=== PATIENT | female | born 1960 | race Hispanic/Latino ===

== ENCOUNTER 2018-04-23 04:47 | Emergency (ER) | payer OTHER ==
[~2018-04-23] VITALS: Ht 157.5 cm; Wt 80.4 kg
--- OUTSIDE RECORDS SUMMARY | 2018-04-23 04:50 | XMS REPORT ---
Author Author [facility] Address Unknown Phone Unavailable Care Team Providers Care [address] [facility]key Name Role Phone ADRY SOUZA Unavailable Unavailable Problems This patient has no known problems. Allergies, Adverse Reactions, Alerts This patient has no known allergies or adverse reactions. Medications This patient has no known medications. Results Test Description Test Time Test Comments Text Results Atomic Results Result Comments BASIC METABOLIC PANEL 2017-12-21 06:16:00 SODIUM (BEAKER) (test xeqs=828) 138 meq/L 135-148 POTASSIUM (BEAKER) (test ajom=190) 3.5 meq/L 3.6-5.5 CHLORIDE (BEAKER) (test vrip=118) 106 meq/L 98-106 CO2 (BEAKER) (test luxu=941) 22 meq/L 20-29 BLOOD UREA NITROGEN (BEAKER) (test cqra=509) 9 mg/dL 10-26 CREATININE (BEAKER) (test zhtx=233) 0.61 mg/dL 0.50-1.20 GLUCOSE RANDOM (BEAKER) (test zpuh=241) 121 mg/dL 70-110 CALCIUM (BEAKER) (test xmif=225) 8.7 mg/dL 8.5-10.5 EGFR (BEAKER) (test wowz=5277) mL/min/1.73 sq m INSUFFICIENT CLINICAL DATA TO CALCULATE ESTIMATED GFR. CBC (HEMOGRAM ONLY)2017-12-21 06:01:00* Test Item Value Reference Range Comments WHITE BLOOD CELL COUNT (BEAKER) (test ddms=205) 6.8 K/ L 4.0-10.0 RED BLOOD CELL COUNT (BEAKER) (test qzsq=359) 2.81 M/ L 4.00-5.00 HEMOGLOBIN (BEAKER) (test qmhc=430) 8.1 GM/DL 12.0-15.5 HEMATOCRIT (BEAKER) (test iixw=635) 25.0 % 36.0-46.0 MEAN CORPUSCULAR VOLUME (BEAKER) (test dwnq=461) 89.0 fL 82.0-99.0 MEAN CORPUSCULAR HEMOGLOBIN (BEAKER) (test heee=585) 28.8 pg 27.0-33.0 MEAN CORPUSCULAR HEMOGLOBIN CONC (BEAKER) (test fluk=714) 32.4 GM/DL 32.0-36.0 RED CELL DISTRIBUTION WIDTH (BEAKER) (test gkyx=172) 12.5 % 12.0-15.0 PLATELET COUNT (BEAKER) (test cugt=330) 202 K/CU MM 150-430 MEAN PLATELET VOLUME (BEAKER) (test twgy=956) 10.0 fL 6.0-11.5 NUCLEATED RED BLOOD CELLS (BEAKER) (test hvgm=367) 0 /100 WBC 0-0 BASIC METABOLIC [id number] 06:07:00* Test Item Value Reference Range Comments SODIUM (BEAKER) (test vuos=175) 137 meq/L 135-148 POTASSIUM (BEAKER) (test yxvj=432) 3.6 meq/L 3.6-5.5 CHLORIDE (BEAKER) (test qlze=710) 104 meq/L 98-106 CO2 (BEAKER) (test kxru=115) 27 meq/L 20-29 BLOOD UREA NITROGEN (BEAKER) (test bccw=320) 12 mg/dL 10-26 CREATININE (BEAKER) (test shag=002) 0.65 mg/dL 0.50-1.20 GLUCOSE RANDOM (BEAKER) (test gqmb=820) 117 mg/dL 70-110 CALCIUM (BEAKER) (test mmrr=703) 8.8 mg/dL 8.5-10.5 EGFR (BEAKER) (test dilo=0238) mL/min/1.73 sq m INSUFFICIENT CLINICAL DATA TO CALCULATE ESTIMATED GFR. CBC (HEMOGRAM ONLY)2017-12-20 05:33:00* Test Item Value Reference Range Comments WHITE BLOOD CELL COUNT (BEAKER) (test bfco=592) 8.2 K/ L 4.0-10.0 RED BLOOD CELL COUNT (BEAKER) (test tjaj=689) 3.28 M/ L 4.00-5.00 HEMOGLOBIN (BEAKER) (test ogav=039) 9.6 GM/DL 12.0-15.5 HEMATOCRIT (BEAKER) (test jdwr=647) 29.6 % 36.0-46.0 MEAN CORPUSCULAR VOLUME (BEAKER) (test gnep=973) 90.2 fL 82.0-99.0 MEAN CORPUSCULAR HEMOGLOBIN (BEAKER) (test olqv=390) 29.3 pg 27.0-33.0 MEAN CORPUSCULAR HEMOGLOBIN CONC (BEAKER) (test vods=140) 32.4 GM/DL 32.0-36.0 RED CELL DISTRIBUTION WIDTH (BEAKER) (test kppw=511) 12.6 % 12.0-15.0 PLATELET COUNT (BEAKER) (test wpww=038) 235 K/CU MM 150-430 MEAN PLATELET VOLUME (BEAKER) (test nyhv=023) 9.5 fL 6.0-11.5 NUCLEATED RED BLOOD CELLS (BEAKER) (test qoey=031) 0 /100 WBC 0-0 BASIC METABOLIC [id number] 11:25:00* Test Item Value Reference Range Comments SODIUM (BEAKER) (test iwlt=077) 141 meq/L 135-148 POTASSIUM (BEAKER) (test kpdc=642) 4.0 meq/L 3.6-5.5 CHLORIDE (BEAKER) (test igpc=580) 107 meq/L 98-106 CO2 (BEAKER) (test koxh=653) 28 meq/L 20-29 BLOOD UREA NITROGEN (BEAKER) (test apcz=487) 15 mg/dL 10-26 CREATININE (BEAKER) (test rkis=606) 0.66 mg/dL 0.50-1.20 GLUCOSE RANDOM (BEAKER) (test tntp=558) 93 mg/dL 70-110 CALCIUM (BEAKER) (test yryo=098) 9.4 mg/dL 8.5-10.5 EGFR (BEAKER) (test vtmv=1799) mL/min/1.73 sq m INSUFFICIENT CLINICAL DATA TO CALCULATE ESTIMATED GFR. CBC W/PLT COUNT & AUTO [id number] 11:02:00* Test Item Value Reference Range Comments WHITE BLOOD CELL COUNT (BEAKER) (test bxpr=407) 4.9 K/ L 4.0-10.0 RED BLOOD CELL COUNT (BEAKER) (test uofd=641) 4.23 M/ L 4.00-5.00 HEMOGLOBIN (BEAKER) (test nwlf=439) 12.6 GM/DL 12.0-15.5 HEMATOCRIT (BEAKER) (test ramz=576) 38.0 % 36.0-46.0 MEAN CORPUSCULAR VOLUME (BEAKER) (test agqi=741) 89.8 fL 82.0-99.0 MEAN CORPUSCULAR HEMOGLOBIN (BEAKER) (test myny=063) 29.8 pg 27.0-33.0 MEAN CORPUSCULAR HEMOGLOBIN CONC (BEAKER) (test nate=829) 33.2 GM/DL 32.0-36.0 RED CELL DISTRIBUTION WIDTH (BEAKER) (test gjac=705) 12.8 % 12.0-15.0 PLATELET COUNT (BEAKER) (test cbyl=343) 282 K/CU MM 150-430 MEAN PLATELET VOLUME (BEAKER) (test uyqo=080) 9.5 fL 6.0-11.5 NUCLEATED RED BLOOD CELLS (BEAKER) (test wcra=509) 0 /100 WBC 0-0 NEUTROPHILS RELATIVE PERCENT (BEAKER) (test yync=730) 69 % LYMPHOCYTES RELATIVE PERCENT (BEAKER) (test agjc=191) 16 % MONOCYTES RELATIVE PERCENT (BEAKER) (test hlcq=314) 8 % EOSINOPHILS RELATIVE PERCENT (BEAKER) (test xxpl=882) 5 % BASOPHILS RELATIVE PERCENT (BEAKER) (test yudf=162) 1 % NEUTROPHILS ABSOLUTE COUNT (BEAKER) (test svnq=822) 3.36 K/ L 1.80-8.00 LYMPHOCYTES ABSOLUTE COUNT (BEAKER) (test wxir=644) 0.77 K/ L 1.48-4.50 MONOCYTES ABSOLUTE COUNT (BEAKER) (test qepi=083) 0.41 K/ L 0.00-1.30 EOSINOPHILS ABSOLUTE COUNT (BEAKER) (test mayt=668) 0.26 K/ L 0.00-0.50 BASOPHILS ABSOLUTE COUNT (BEAKER) (test bqop=389) 0.04 K/ L 0.00-0.20 IMMATURE GRANULOCYTES-RELATIVE PERCENT (BEAKER) (test jdvu=8633) 0 % 0-0 RAD, JOINT SURVEY, 1V 2 OR MORE [id number] 17:44:00Reason for Exam:-> M17.11FINAL REPORT Right lower extremity radiographs HISTORY: M17.11 COMPARISON: None FINDINGS: Standing views of the right lower extremity were obtained of the femur, knee, and tibia and fibula. There is no radiographic evidence of acute fracture or dislocation. There is marked medial compartment joint space narrowing of the right knee with and subchondral sclerosis. Mild femoral acetabular joint space narrowing. Signed: Ramiro Albert Verified Date/Time: 11/16/2017 17:44:01 Reading Location: [facility] Radiology Reading Room , EXTREMITY, LOWER, JOINT, WITHOUT CONTRAST, RIGHT 2017-11-16 13:56:00Reason for Exam:->M17.11FINAL REPORT MRI of the right knee History: M1.11 Comparison: None Technique: Multiplanar multisequence MRI of the right knee was performed without contrast. Findings: Extensor mechanism: The patellar and quadriceps tendons are intact. No retinacular abnormalities. Ligaments: The anterior and posterior cruciate ligaments are intact. The medial and lateral collateral ligament complexes are intact. Menisci: There is markedly truncated appearance of the body and posterior horn of the medial meniscus extending to the posterior root attachment with peripheral meniscus extrusion by 7 mm, consistent with a complex radial tear and/or partial meniscectomy change. The lateral meniscus appears intact. Bones/Cartilage: There is advanced tricompartmental osteoarthritis, most severe in the medial compartment with full-thickness cartilage loss, mild cortical flattening, subchondral sclerosis and edema, and marginal osteophytes. There is no fracture or traumatic malalignment. Marked subchondral marrow edema in the medial and lateral femoral condyles, medial and lateral tibial plateaus e xtending to the tibial eminence are suggestive of nonspecific reactive, degenera tive or stress-related change. There is no acute fracture. Fluid: Small knee angelo int effusion and small popliteal cyst. Muscles: No edema or atrophy. IMPRESSION : 1. Marked truncated appearance of the body and posterior horn of the medial me niscus consistent with a complex radial tear and/or partial meniscectomy change. 2. Advanced tricompartmental osteoarthritis, most severe in the medial compartme nt as above. Subchondral marrow edema in the distal femur and proximal tibia sug gestive of nonspecific reactive, degenerative or stress-related change.3. Small knee joint effusion and small popliteal cyst. Signed: Laya Ibanez [facility] [address] Date/Time: 11/16/2017 13:56:56 Reading Location: [facility] B1 [id number] Ortho Consult Reading Room 01: 56 PM
--- OUTSIDE RECORDS SUMMARY | 2018-04-23 04:50 | XMS REPORT | Clinical Summary ---
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 Active levothyroxine 50 mcg Cap Take 50 mcg 0 by mouth daily. Active fluticasone (FLONASE) 50 1 spray by 0 mcg/actuation nasal spray Nasal route as needed for Rhinitis. Active acetaminophen-codeine 0 (TYLENOL #3) 300-30 mg 8 per tablet Active HYDROcodone-acetaminophen 0 (NORCO 10-325) 10-325 mg 8 per tablet Active loratadine (CLARITIN) 10 0 mg tablet 8 Active predniSONE (DELTASONE) 50 0 MG tablet 8 07/19/2018 Active gabapentin (NEURONTIN) Take 1 270 capsule 0 100 MG capsule (100 9 capsuleIndications: mg total) by Cervical radiculopathy, mouth 3 Bilateral carpal tunnel (three) times syndrome daily for 90 days. 07/19/2018 Active IBU 800 mg Take 1 tablet 180 tablet 0 tabletIndications: (800 mg 9 Cervical radiculopathy, total) by Bilateral carpal tunnel mouth 2 (two) syndrome times daily for 90 days. 04/30/2018 Active traMADol (ULTRAM) 50 mg Take 1 tablet 30 tablet 1 tabletIndications: (50 mg total) 9 Cervical radiculopathy, by mouth Bilateral carpal tunnel every 6 (six) syndrome hours as needed for Pain for up to 10 days. Max Daily Amount: 200 mg 12/21/2017 Discontinued ibuprofen (ADVIL,MOTRIN) Take 800 mg 0 800 MG tablet by mouth every 8 (eight) hours as needed for Pain. 12/21/2017 Discontinued traMADol (ULTRAM) 50 mg Take 50 mg by 0 tablet mouth every 6 (six) hours as needed for Pain. 12/31/2017 docusate sodium (COLACE) Take 1 10 capsule 0 100 MG capsule capsule (100 8 mg total) by mouth 2 (two) times daily for 10 days. 12/21/2017 Discontinued enoxaparin (LOVENOX) 40 Inject 0.4 11 Syringe 0 mg/0.4 mL Syrg mLs (40 mg 8 total) subcutaneousl y daily. 01/01/2018 enoxaparin (LOVENOX) 40 Inject 0.4 11 Syringe 0 mg/0.4 mL Syrg mLs (40 mg 8 total) subcutaneousl y daily for 11 days. 02/15/2018 Discontinued traMADol (ULTRAM) 50 mg 0 tablet 8 04/20/2018 Discontinued IBU 800 mg tablet 0 8 03/17/2018 traMADol (ULTRAM) 50 mg Take 1 tablet 90 tablet 0 tablet (50 mg total) 8 by mouth every 8 (eight) hours as needed for Pain for up to 30 days. Max Daily Amount: 150 mg Active Problems Problem Noted Date Cervical radiculopathy 04/20/2018 Bilateral carpal tunnel syndrome 04/20/2018 Obesity (BMI 30-39.9) 04/20/2018 History of knee replacement, total, right 02/02/2018 Genu varum of right lower extremity 12/21/2017 Primary osteoarthritis of right knee 12/19/2017 Osteoarthritis of spine with radiculopathy, lumbar region 11/04/2017 Encounters Care Team Description Date Type Specialty Donny Mathur MD Cervical radiculopathy (Primary Dx); Bilateral carpal tunnel syndrome; Obesity (BMI 30-39.9) 04/20/2018 Office Visit Orthopedic Surgery Donny Mathur MD Medication 04/05/2018 Telephone Orthopedic Surgery Donny Mathur MD MED REFILL 04/04/2018 Telephone Orthopedic Donny Loyd MD Authorization 03/31/2018 Telephone Orthopedic Donny Loyd MD 03/01/2018 Telephone Orthopedic Donny Loyd MD Work Note 02/28/2018 Telephone Orthopedic Donny Loyd MD 02/27/2018 Telephone Orthopedic Donny Loyd MD Medication Refill 02/15/2018 Telephone Orthopedic Donny Loyd MD Primary osteoarthritis of right knee (Primary Dx); History of knee replacement, total, right 02/02/2018 Office Visit Orthopedic Donny Loyd MD Primary osteoarthritis of right knee (Primary Dx); Genu varum of right lower extremity 01/03/2018 Office Visit Orthopedic Surgery Donny Mathur MD MEDICATIONS 01/02/2018 Telephone Orthopedic Donny Loyd MD 12/30/2017 Orders Only Orthopedic Surgery Donny Mathur MD QUESTIONS 12/27/2017 Telephone Orthopedic Surgery Donny Mathur MD pharmacy 12/26/2017 Telephone Orthopedic Surgery Donny Mathur MD needs a letter 12/22/2017 Telephone Orthopedic Surgery Donny Mathur MD just had surgery 12/20/2017 Telephone Orthopedic Surgery Mary Ramirez, [facility] 12/19/2017 Anesthesia Event Donny Mathur MD ARTHROPLASTY,KNEE UNILATERAL 12/19/2017 Surgery Donny Mathur MD Primary localized osteoarthritis of right knee (Primary Dx); Genu varum of right lower extremity 12/19/2017 [facility] General Internal Medicine - Encounter 12/21/2017 Donny Mathur MD 12/19/2017 Surgery Prep 12/19/2017 Travel Donny Mathur MD evelyne from [facility] 12/19/2017 Telephone Orthopedic Donny Loyd MD 12/17/2017 Abstract Orthopedic Surgery Donny Mathur MD 12/16/2017 Abstract Orthopedic Surgery Donny Mathur MD 12/06/2017 Hospital Pre-Admission Testing Encounter Donny Mathur MD Osteoarthritis of right knee, unspecified osteoarthritis type 11/16/2017 Hospital Encounter Donny Mathur MD Osteoarthritis of right knee, unspecified osteoarthritis type 11/16/2017 Hospital Encounter Donny Mathur MD Osteoarthritis of right knee, unspecified osteoarthritis type (Primary Dx) 11/15/2017 Outside Orders Donny Mathur MD 11/08/2017 Outside Orders after 04/22/2017 Social History Date Tobacco Use Types Packs/Day Years Used Quit: 1996 Former Smoker 0.25 15 Smokeless Tobacco: Never Used Alcohol Use Drinks/Week oz/Week Comments No Sex Assigned at Date Recorded Not on file Industry Job Start Date Occupation Not on file Not on file Not on file Travel End Travel History Travel Start No recent travel history available. Last Filed Vital Signs Time Taken Vital Sign Reading 04/20/2018 1:39 PM MACHINE [facility] Blood Pressure 122/72 04/20/2018 1:39 PM MACHINE HAND Pulse 73 12/21/2017 4:05 PM CDT Temperature 37.1 C (98.7 F) 12/21/2017 4:05 PM CDT Respiratory Rate 18 12/21/2017 4:05 PM CDT Oxygen Saturation 99% - Inhaled Oxygen - Concentration 04/20/2018 1:39 PM MACHINE HAND Weight 83 kg (183 lb) 04/20/2018 1:39 PM MACHINE HAND Height 157.5 cm (5' 2") 04/20/2018 1:39 PM MACHINE HAND Body Mass Index 33.47 Plan of Treatment Care Team Description [place] [address] [facility] [address] [place] [address] [phone] 05/04/2018 [place] [address] [facility] [address] [place] [address] [phone] 05/18/2018 Office Visit Orthopedic Surgery Implants Device Identifier Shelf Expiration Date Model / Serial / Lot Implanted Type Area Manufactur er 04/21/2019 6197-9-001 / N/A / [id number] Cement Bone Smplx Tobra 40gm Cement/Kunal Right: Knee JAYDA:ST [id number] - Sn/A ler/Adhesi JUDY Implanted: Qty: 2 on 12/19/2017 by jayashree HAROEDDonny Serna MD 10/30/2026 [id number] / N/A / [id number] Post Stab Oxi Sz3 [id number] - Sn/A Joints Right: Knee TOMPKINS & Implanted: Qty: 1 on 12/19/2017 by NEPHEW:Donny Hill MD HO 10/08/2027 [id number] / N/A / [id number] Baseplt Tib Spotter Driver Genii 2 R [id number] - Joints Right: Knee TOMPKINS & Sn/A NEPHEW:ORT Implanted: Qty: 1 on 12/19/2017 by Donny Potter MD 10/18/2027 [id number] / N/A / [id number] Comp Fem Oval Genii 29mm [id number] - Joints Right: Knee TOMPKINS & Sn/A NEPHEW:ORT Implanted: Qty: 1 on 12/19/2017 by Donny Potter MD 06/08/2026 [id number] / N/A / [id number] Insrt Articular Sz 1-2 11mm - Sn/A Joints Right: Knee TOMPKINS & Implanted: Qty: 1 on 12/19/2017 by NEPHEW:Donny Hill MD Procedures Comments Procedure Name Priority Date/Time Associated Diagnosis XR HAND LEFT 3 VIEW Routine 04/20/2018 Bilateral carpal tunnel 3:53 PM MACHINE HAND syndrome XR SPINE CERVICAL 2 OR 3 Routine 04/20/2018 Cervical radiculopathy VIEWS 3:52 PM MACHINE HAND XR HAND RIGHT 3 VIEW Routine 04/20/2018 Bilateral carpal tunnel 3:52 PM MACHINE HAND syndrome XR KNEE RIGHT 3 VIEWS Routine 02/02/2018 Primary osteoarthritis of 11:31 AM MACHINE HAND right knee CBC (HEMOGRAM ONLY) Routine 12/21/2017 5:03 AM CDT BASIC METABOLIC PANEL (7) Routine 12/21/2017 5:03 AM CDT CBC (HEMOGRAM ONLY) Routine 12/20/2017 5:08 AM CDT BASIC METABOLIC PANEL (7) Routine 12/20/2017 5:08 AM CDT ANESTHESIA PERIPHERAL Routine 12/19/2017 BLOCK 3:38 PM CDT ARTHROPLASTY,KNEE 12/19/2017 Genu varum of right lower UNILATERAL 7:00 AM CDT extremity Primary localized osteoarthritis of right knee Special Needs ASST- conf w/Elmer-tp sSMITH & NEPHEW VISIONAIRE CUSTOM CUTTING BLOCKS/1 conf w/Shadi-tps TRANSFUSION SERVICE 12/07/2017 REPORT - SCAN 6:02 PM CDT CBC W/PLT COUNT & AUTO Routine 12/06/2017 DIFFERENTIAL 10:45 AM CDT TYPE AND SCREEN Routine 12/06/2017 10:45 AM CDT BASIC METABOLIC PANEL (7) Routine 12/06/2017 10:45 AM CDT CBC W/PLT COUNT & AUTO Routine 12/06/2017 DIFFERENTIAL 10:45 AM CDT XR JOINT SURVEY 1 VIEW 2 Routine 11/16/2017 OR MORE JOINTS 12:50 PM CDT MR LOWER EXT JOINT Routine 11/16/2017 Osteoarthritis of right WITHOUT IV CONTRAST RIGHT 12:06 PM CDT knee, unspecified osteoarthritis type after 04/22/2017 Results * XR hand 3 views left (04/20/2018 3:53 PM MACHINE HAND) Impressions Performed At Normal bone density. No fracture or dislocation seen. There is no significant arthrosis. The soft tissues are unremarkable. Narrative Performed At [facility], lateral, oblique of the left hand are reviewed * XR hand 3 views right (04/20/2018 3:52 PM MACHINE HAND) Impressions Performed At Normal bone density. No fracture or dislocation seen. There is no significant arthrosis. The soft tissues are unremarkable. Narrative Performed At [facility], lateral and oblique of the right hand are reviewed. * XR spine cervical 2 or 3 views (04/20/2018 3:52 PM MACHINE HAND) Impressions Performed At There is some mild loss of the normal cervical lordosis. At C5-C6 or some mild anterior spurring on the endplate of the vertebral body. The soft tissues are unremarkable. Narrative Performed At [facility] lateraland odontoid are reviewed. * XR knee 3 views right (02/02/2018 11:31 AM MACHINE HAND) Impressions Performed At There is a well aligned total knee arthroplasty that appropriately sized. There is no evidence of loosening. There is good tracking of the patella Narrative Performed At [facility] lateral and skyline of the right knee are reviewed. * CBC (Hemogram only) (12/21/2017 5:03 AM CDT) Only the most recent of 2 results within the time period is included. WBC 6.8 4.0 - 10.0 K/L [facility] RBC 2.81 (L) 4.00 - 5.00 M/L [facility] Hemoglobin 8.1 (L) 12.0 - 15.5 GM/DL [facility] Hematocrit 25.0 (L) 36.0 - 46.0 % [facility] MCV 89.0 82.0 - 99.0 fL [facility] MCH 28.8 27.0 - 33.0 pg [facility] MCHC 32.4 32.0 - 36.0 GM/DL [facility] RDW 12.5 12.0 - 15.0 % [facility] Platelets 202 150 - 430 K/CU MM [facility] MPV 10.0 6.0 - 11.5 fL [facility] nRBC 0 0 - 0 /100 WBC [facility] Specimen Blood - Arm, Right Performing Organization Address City/State/Zipcode Phone Number [facility] [address] [place], [place] [phone] * Basic metabolic panel (12/21/2017 5:03 AM CDT) Only the most recent of 3 results within the time period is included. Sodium 138 135 - 148 meq/L [facility] Potassium 3.5 (L) 3.6 - 5.5 meq/L [facility] Chloride 106 98 - 106 meq/L [facility] CO2 22 20 - 29 meq/L [facility] BUN 9 (L) 10 - 26 mg/dL [facility] Creatinine 0.61 0.50 - 1.20 mg/dL [facility] Glucose 121 (H) 70 - 110 mg/dL [facility] Calcium 8.7 8.5 - 10.5 mg/dL [facility] EGFR Comment: INSUFFICIENT CLINICAL mL/min/1.73 sq m [facility] DATA TO CALCULATE ESTIMATED [facility] GFR. Specimen Blood - Arm, Right Performing Organization Address City/State/Zipcode Phone Number [facility] [address] [place] [address] * ANESTHESIA PERIPHERAL BLOCK (12/19/2017 3:38 PM CDT) Narrative Performed At Concepcion Lora DO 12/19/20173:42 PM Peripheral Block Patient location during procedure: holding area Start time: 12/19/2017 7:03 AM End time: 12/19/2017 7:09 AM Procedure Indication: at surgeon's request and post-op pain management Preanesthetic Checklist Completed: patient identified, pre-op evaluation, timeout performed, IV checked, risks and benefits discussed, monitors and equipment checked, anesthesia consent given, prep site dry prior to draping and maximum sterile barriers were used: cap, mask, sterile gown, sterile gloves, and large sterile sheet Staffing Anesthesiologist: Concepcion Lora DO Performed: personally Peripheral Nerve Block Patient position: supine Prep: chlorhexidine gluconate and isopropyl alcohol Patient monitoring: EKG, HR, BP and SpO2 Laterality: right Block type: adductor canal Injection technique: single-shot ultrasound guided - in plane, prescan was completed prior to procedure and needle tip was visualized throughout the entire procedure ultrasound image saved Block Dose: ropivicaine and single-shot Infiltration strength: 0.25 % Dose: 25 mL Needle Needle type: short-bevel Needle gauge: 21 G Needle length: 100 mm Needle Localization:US guided Assessment Injection assessment: incremental injection and negative aspiration for heme Pain scale pre-procedure: 3 Pain scale post-procedure: 1 LOC: Sedated with meaningful contact supplemental oxygen used. Test dose result: negative Amount: 25 mL, Other (0.25% ropiv)no evidence of intravascular injection and no heart rate changeno paresthesia patient had no immediate complications and patient tolerated the procedure well Additional Notes No pain during normal pressure injections.Pt. Able to move extremity immediately post block. VSS, No complications. Procedure Note Concepcion Lora DO - 12/19/2017 3:38 PM CDT Peripheral Block Patient location during procedure: holding area Start time: 12/19/2017 7:03 AM End time: 12/19/2017 7:09 AM Procedure Indication: at surgeon's request and post-op pain management Preanesthetic Checklist Completed: patient identified, pre-op evaluation, timeout performed, IV checked, risks and benefits discussed, monitors and equipment checked, anesthesia consent given, prep site dry prior to draping and maximum sterile barriers were used: cap, mask, sterile gown, sterile gloves, and large sterile sheet Staffing Anesthesiologist: Concepcion Lora, Performed: personally Peripheral Nerve Block Patient position: supine Prep: chlorhexidine gluconate and isopropyl alcohol Patient monitoring: EKG, HR, BP and SpO2 Laterality: right Block type: adductor canal Injection technique: single-shot ultrasound guided - in plane, prescan was completed prior to procedure and needle tip was visualized throughout the entire procedure ultrasound image saved Block Dose: ropivicaine and single-shot Infiltration strength: 0.25 % Dose: 25 mL Needle Needle type: short-bevel Needle gauge: 21 G Needle length: 100 mm Needle Localization: US guided Assessment Injection assessment: incremental injection and negative aspiration for heme Pain scale pre-procedure: 3 Pain scale post-procedure: 1 LOC: Sedated with meaningful contact supplemental oxygen used. Test dose result: negative Amount: 25 mL, Other (0.25% ropiv)no evidence of intravascular injection and no heart rate changeno paresthesia patient had no immediate complications and patient tolerated the procedure well Additional Notes No pain during normal pressure injections. Pt. Able to move extremity immediately post block. VSS, No complications. * TRANSFUSION SERVICE REPORT - SCAN (12/07/2017 6:02 PM CDT) Narrative Performed At * CBC with platelet count + automated diff (12/06/2017 10:45 AM CDT) WBC 4.9 4.0 - 10.0 K/L [facility] RBC 4.23 4.00 - 5.00 M/L [facility] Hemoglobin 12.6 12.0 - 15.5 GM/DL [facility] Hematocrit 38.0 36.0 - 46.0 % [facility] MCV 89.8 82.0 - 99.0 fL [facility] MCH 29.8 27.0 - 33.0 pg [facility] MCHC 33.2 32.0 - 36.0 GM/DL [facility] RDW 12.8 12.0 - 15.0 % [facility] Platelets 282 150 - 430 K/CU MM [facility] MPV 9.5 6.0 - 11.5 fL [facility] nRBC 0 0 - 0 /100 WBC [facility] % Neutros 69 % [facility] % Lymphs 16 % [facility] % Monos 8 % [facility] % Eos 5 % [facility] % Baso 1 % [facility] # Neutros 3.36 1.80 - 8.00 K/L [facility] # Lymphs 0.77 (L) 1.48 - 4.50 K/L [facility] # Monos 0.41 0.00 - 1.30 K/L [facility] # Eos 0.26 0.00 - 0.50 K/L [facility] # Baso 0.04 0.00 - 0.20 K/L [facility] Immature 0 0 - 0 % [facility] Specimen Blood Performing Organization Address City/State/Zipcode Phone Number [facility] [address] [place] [phone] * Type and screen (12/06/2017 10:45 AM CDT) Ab Scrn NEGATIVE [facility] ABO Grouping O [facility] Rh Factor POS [facility] Specimen Blood Performing Organization Address City/State/Zipcode Phone Number [address] [address] HOSPITAL * XR joint survey 1 view 2 or more joints (11/16/2017 12:50 PM CDT) Narrative Performed At FINAL REPORT RIS Right lower extremity radiographs HISTORY: M17.11 COMPARISON: None FINDINGS: Standing views of the right lower extremity were obtained of the femur, knee, and tibia and fibula. There is no radiographic evidence of acute fracture or dislocation. There is marked medial compartment joint space narrowing of the right knee with and subchondral sclerosis. Mild femoral acetabular joint space narrowing. Signed: Ramiro Albert MD Report Verified Date/Time:11/16/2017 17:44:01 Reading Location: [facility] Radiology Reading Room Procedure Note Interface, External Ris In - 11/16/2017 5:46 PM CDT FINAL REPORT Right lower extremity radiographs HISTORY: M17.11 COMPARISON: None FINDINGS: Standing views of the right lower extremity were obtained of the femur, knee, and tibia and fibula. There is no radiographic evidence of acute fracture or dislocation. There is marked medial compartment joint space narrowing of the right knee with and subchondral sclerosis. Mild femoral acetabular joint space narrowing. Signed: Ramiro Albert MD Report Verified Date/Time: 11/16/2017 17:44:01 Reading Location: [facility] Radiology Reading Room Performing Organization Address City/State/Zipcode Phone Number [facility] * MR lower extremity joint only without IV contrast right side (11/16/2017 12:06 PM CDT) Narrative Performed At FINAL REPORT [facility] MRI of the right knee History:M17.11 Comparison: None Technique:Multiplanar multisequence MRI of the right knee was performed without contrast. Findings: Extensor mechanism:The patellar and quadriceps tendons are intact. No retinacular abnormalities. Ligaments:The anterior and posterior cruciate ligaments are intact. The medial and lateral collateral ligament complexes are intact. Menisci:There is markedly truncated appearance of the body and posterior horn of the medial meniscus extending to the posterior root attachment with peripheral meniscus extrusion by 7 mm, consistent with a complex radial tear and/or partial meniscectomy change. The lateral meniscus appears intact. Bones/Cartilage:There is advanced tricompartmental osteoarthritis, most severe in the medial compartment with full-thickness cartilage loss, mild cortical flattening, subchondral sclerosis and edema, and marginal osteophytes. There is no fracture or traumatic malalignment. Marked subchondral marrow edema in the medial and lateral femoral condyles, medial and lateral tibial plateaus extending to the tibial eminence are suggestive of nonspecific reactive, degenerative or stress-related change. There is no acute fracture. Fluid:Small knee joint effusion and small popliteal cyst. Muscles:No edema or atrophy. IMPRESSION: 1. Marked truncated appearance of the body and posterior horn of the medial meniscus consistent with a complex radial tear and/or partial meniscectomy change. 2. Advanced tricompartmental osteoarthritis, most severe in the medial compartment as above. Subchondral marrow edema in the distal femur and proximal tibia suggestive of nonspecific reactive, degenerative or stress-related change. 3. Small knee joint effusion and small popliteal cyst. Signed: Michael Ibanez MD Report Verified Date/Time:11/16/2017 13:56:56 Reading Location: [address] Ortho Consult Reading Room Procedure Note Interface, External Ris In - 11/16/2017 1:59 PM CDT FINAL REPORT MRI of the right knee History: M17.11 Comparison: None Technique: Multiplanar multisequence MRI of [...] femoral condyles, medial and lateral tibial plateaus extending to the tibial eminence are suggestive of nonspecific reactive, degenerative or stress-related change. There is no acute fracture. Fluid: Small knee joint effusion and small popliteal cyst. Muscles: No edema or atrophy. IMPRESSION: 1. Marked truncated appearance of the body and posterior horn of the medial meniscus consistent with a complex radial tear and/or partial meniscectomy change. 2. Advanced tricompartmental osteoarthritis, most severe in the medial compartment as above. Subchondral marrow edema in the distal femur and proximal tibia suggestive of nonspecific reactive, degenerative or stress-related change. 3. Small knee joint effusion and small popliteal cyst. Signed: Michael Ibanez MD Report Verified Date/Time: 11/16/2017 13:56:56 Reading Location: [id number] Ortho Consult Reading Room Performing Organization Address City/State/Zipcode Phone Number [facility] RIS after 04/22/2017 Insurance Payer Benefit Subscriber ID Type Phone Address Plan / Group JENNY ALVARADO xxxxxxxxxxx [employer] Advance Directives For more information, please contact: [address] [address] Date Inactivated Comments Code Status Date Activated Full Code 12/19/2017 11:12 AM This code status was determined by: Patient
[2018-04-23] MEDS ORDERED: ULTRAM50 MG PO (05:14)
[2018-04-23] MEDS ORDERED: IBUPROFEN400 MG PO (05:14)
[2018-04-23] MEDS ORDERED: LEVOTHYROXINE100 MCG (05:14)
[2018-04-23] MEDS ORDERED: LOSARTAN POTASS25 MG (05:14)
[2018-04-23 05:33] VITALS: BP 139/80
== END 2018-04-23 05:32 | disposition home or self-care (01) ==
LOC: FSED 04:47
DX: R30.0 Dysuria (principal); R10.9 Unspecified abdominal pain; M54.5 Low back pain; N30.90 Cystitis, unspecified without hematuria; I10 Essential (primary) hypertension; E03.9 Hypothyroidism, unspecified
CPT/HCPCS: 81003; 99283

== ENCOUNTER → 2024-03-23 | Day surgery (SDC) | payer OTHER ==
[~2024-03-23] MED LIST: ACETAMINOPHEN 1000 MG/100 ML 100 ML IV ONE; AMLODIPINE BESY10 MG PO; ASPIRIN 81 MG ENTERIC COATED PO SCH; ATORVASTATIN CA20 MG PO; CEFAZOLIN SODIUM 2 GM ONE; DEXAMETHASONE SOD PHOS INJ 4 MG/ML SDV ONE; EPHEDRINE SULFATE INJ 50 MG/ML VIAL ONE; FENTANYL CITRATE/PF 100MCG/2 ML INJ ONE; IBUPROFEN400 MG PO; LACTATED RINGER'S 1,000 ML ONE; LEVOTHYROXINE100 MCG; LIDOCAINE HCL 2% LOCAL INJ 5 ML SDV VIAL INJ ONE; LOSARTAN POTASS25 MG; ONDANSETRON HCL INJ 2MG/ML 2ML 2 MG/ML VIAL ONE; PROPOFOL IV EMULSION 10 MG/ML 20 ML VIAL ONE; SEVOFLURANE INHAL SOLN 250 ML PEN BTL ONE; ULTRAM50 MG PO
[2024-03-23] MEDS: HYDROCODONE/APAP 7.5MG-325MG 1 EA TAB ONE (12:38)
[2024-03-23 13:30] VITALS: BP 145/89; PULSE 88; RESP 15; O2SAT 98
== END | disposition home or self-care (01) ==
LOC: OR 08:17
PROVIDERS: ATTEND Orthopaedic Surgery Adult Reconstructive Orthopaedic Surgery
DX: S83.212A Bucket-handle tear of medial meniscus, current injury, left knee, initial encounter (principal); M17.12 Unilateral primary osteoarthritis, left knee; M94.262 Chondromalacia, left knee; Z71.3 Dietary counseling and surveillance; Z71.82 Exercise counseling; I10 Essential (primary) hypertension; E78.5 Hyperlipidemia, unspecified; X58.XXXA Exposure to other specified factors, initial encounter; Z01.810 Encounter for preprocedural cardiovascular examination; Z79.1 Long term (current) use of non-steroidal anti-inflammatories (NSAID); Z79.899 Other long term (current) drug therapy
CPT/HCPCS: 29881; 93005; J0131; J1100; J2003; J2405; J2704; J3010; J7121

== ENCOUNTER → 2024-09-27 | Day surgery (SDC) | payer OTHER ==
[2024-09-26 12:36] LABS: BASOPHILS % 1.0 % (0.0-1.0); EOSINOPHILS % 5.3 % (0.0-6.0); LYMPHOCYTES % 23.7 % (18.0-39.1); MONOCYTES % 6.8 % (4.4-11.3); NEUTROPHILS % 63.1 % (38.7-80.0); RED CELL DISTRIBUTION WIDTH 13.4 % (11.7-14.4)
[~2024-09-27] MED LIST changes: +ASPIRIN 325 MG TAB PO SCH; -ASPIRIN 81 MG ENTERIC COATED PO SCH; -CEFAZOLIN SODIUM 2 GM ONE; +CELECOXIB 100 MG CAP PO SCH; +DOCUSATE SODIUM 100 MG CAP PO PRN; +FAMOTIDINE 20 MG/2 ML VIAL IV ONE; +HYDROCODONE/APAP 7.5MG-325MG 1 EA TAB PO PRN; -LACTATED RINGER'S 1,000 ML ONE; +ONDANSETRON HCL INJ 2MG/ML 2ML 2 MG/ML VIAL IV PRN; -ONDANSETRON HCL INJ 2MG/ML 2ML 2 MG/ML VIAL ONE; +ROPIVACAINE/EPI/CLONIDINE/KET 50 ML SYRINGE INJ ONE; -SEVOFLURANE INHAL SOLN 250 ML PEN BTL ONE; +TRAMADOL HCL100 MG PO
[2024-09-27] MEDS: LACTATED RINGER'S 1,000 ML ONE (06:02)
[2024-09-27] MEDS: CEFAZOLIN SODIUM 2 GM ONE (06:02)
[2024-09-27 08:55] VITALS: TEMP 97.5
[2024-09-27] MEDS: HYDROMORPHONE 1MG/1ML INJ ONE (09:11)
[2024-09-27] MEDS: HYDROCODONE/APAP 7.5MG-325MG 1 EA TAB ONE (09:40)
[2024-09-27] MEDS: ONDANSETRON HCL INJ 2MG/ML 2ML 2 MG/ML VIAL ONE (10:00)
[2024-09-27] MEDS: KETOROLAC TROMETHAMINE 30 MG/ML VIAL ONE (11:50)
[2024-09-27 12:50] VITALS: BP 121/63; PULSE 77; RESP 16; O2SAT 95
== END | disposition home or self-care (01) ==
LOC: OR 05:24
PROVIDERS: ATTEND Orthopaedic Surgery Adult Reconstructive Orthopaedic Surgery
DX: M17.12 Unilateral primary osteoarthritis, left knee (principal); M19.072 Primary osteoarthritis, left ankle and foot; I10 Essential (primary) hypertension; E78.5 Hyperlipidemia, unspecified; Z79.82 Long term (current) use of aspirin; Z79.1 Long term (current) use of non-steroidal anti-inflammatories (NSAID); Z96.651 Presence of right artificial knee joint; Z01.810 Encounter for preprocedural cardiovascular examination; Z01.812 Encounter for preprocedural laboratory examination
CPT/HCPCS: 27447; 36415; 73560; 85025; 86850; 86900; 93005 ×2; 97110; 97116; 97161; 97530; C1713 ×2; C1776 ×2; J0131; J1100; J1171; J1308; J1885; J2003; J2405; J2704; J3010; J7121

== ENCOUNTER 2024-10-02 13:50 | Outpatient (RCR) | payer OTHER ==
[~2024-10-02 13:50] MED LIST changes: -ACETAMINOPHEN 1000 MG/100 ML 100 ML IV ONE; -ASPIRIN 325 MG TAB PO SCH; -CELECOXIB 100 MG CAP PO SCH; -DEXAMETHASONE SOD PHOS INJ 4 MG/ML SDV ONE; -DOCUSATE SODIUM 100 MG CAP PO PRN; -EPHEDRINE SULFATE INJ 50 MG/ML VIAL ONE; -FAMOTIDINE 20 MG/2 ML VIAL IV ONE; -FENTANYL CITRATE/PF 100MCG/2 ML INJ ONE; -HYDROCODONE/APAP 7.5MG-325MG 1 EA TAB PO PRN; -LIDOCAINE HCL 2% LOCAL INJ 5 ML SDV VIAL INJ ONE; -ONDANSETRON HCL INJ 2MG/ML 2ML 2 MG/ML VIAL IV PRN; -PROPOFOL IV EMULSION 10 MG/ML 20 ML VIAL ONE; -ROPIVACAINE/EPI/CLONIDINE/KET 50 ML SYRINGE INJ ONE
== END 2024-10-21 ==
LOC: PT 13:50
PROVIDERS: ATTEND Orthopaedic Surgery Adult Reconstructive Orthopaedic Surgery
DX: M17.12 Unilateral primary osteoarthritis, left knee (principal)

== ENCOUNTER 2024-11-06 10:58 | Outpatient (RCR) | payer OTHER | END 2024-11-20 | LOC: PT 10:58 | PROVIDERS: ATTEND Orthopaedic Surgery Adult Reconstructive Orthopaedic Surgery | DX: M17.12 Unilateral primary osteoarthritis, left knee (principal) ==